=== PATIENT | female | born 1965 | race Caucasian/White ===

== ENCOUNTER 2018-06-28 06:47 | Day surgery (SDC) | payer OTHER ==
[~2018-06-28 06:47] MED LIST: COZAAR50 MG PO; NORVASC5 MG PO
== END 2018-06-28 15:25 | disposition home or self-care (01) ==
LOC: CIR.AMB 06:47
DX: M75.121 Complete rotator cuff tear or rupture of right shoulder, not specified as traumatic (principal); M19.011 Primary osteoarthritis, right shoulder; M24.111 Other articular cartilage disorders, right shoulder